=== PATIENT | male | born 1975 | race American Indian/Alaskan Native ===

== ENCOUNTER 2017-02-24 20:25 | Emergency (ER) | payer SELFPAY ==
[2017-02-24 21:59] LABS: Basophils % (Auto) 0.4 % (0.0-1.8); Eosinophils % (Auto) 0.5 % (0.0-4.3); Hematocrit 50.5 % (35.5-45.6); Hemoglobin 17.1 gm/dl (11.8-15.2); Mean Corpuscular HGB Conc 34 % (32-34); Mean Corpuscular Hemoglobin 29 pg (28-32); Mean Corpuscular Volume 84 fl (84-94); Platelet Count 297 K/mm3 (140-440); Red Cell Distribution Width 15.8 % (13.2-15.2); White Blood Count 5.2 K/mm3 (4.5-11.0)
[2017-02-24 22:09] LABS: Alanine Aminotransferase 15 units/L (7-56); Albumin 4.6 g/dL (3.9-5); Albumin/Globulin Ratio 1.4 %; Alkaline Phosphatase 81 units/L (35-129); Anion Gap 17 mmol/L; BUN/Creatinine Ratio 14; Blood Urea Nitrogen 10 mg/dL (9-20); Calcium 9.6 mg/dL (8.4-10.2); Carbon Dioxide 28 mmol/L (22-30); Chloride 100.9 mmol/L (98-107); Glucose 78 mg/dL (75-100); Lipase 84 units/L (13-60); Sodium 142 mmol/L (137-145); Total Protein 7.8 g/dL (6.3-8.2)
[2017-02-25] LABS: Bacteria,Urine 1+ /HPF (Negative); Bilirubin,Urine NEG (Negative); Blood,Urine NEG (Negative); Ketones,Urine NEG (Negative); Leukocyte Esterase,Urine NEG (Negative); Mucus,Urine FEW /HPF; Nitrite,Urine NEG (Negative); Protein,Urine <15 mg/dL mg/dL (Negative); Urobilinogen,Urine < 2.0 mg/dL (<2.0)
[2017-02-25] MEDS ORDERED: MORPHINE IV ONE (03:52)
[2017-02-25] MEDS ORDERED: NACL 0.9% 1000 ML 1,000 ML IV ONE (03:52)
[2017-02-25] MEDS ORDERED: MORPHINE ONE (04:00)
[2017-02-25] MEDS ORDERED: NACL ONE (04:23)
--- NOTE | 2017-02-25 05:14 | Cat Scan Report ---
FINAL REPORT EXAM: CT ABDOMEN PELVIS W CON HISTORY: hernia, abd and groin pain Rt side TECHNIQUE: Routine axial imaging was obtained of the abdomen and pelvis following the intravenous injection of 100 cc of Omnipaque 350. Oral contrast was not administered. Sagittal and coronal reconstructions were reviewed. FINDINGS: The lung bases are clear. Pleural fluid is not seen. The liver, gallbladder, pancreas, spleen, and adrenal glands appear normal. The kidneys reveal benign cortical cysts bilaterally measuring up to 2.4 cm in diameter. There is no evidence of hydronephrosis. The vascular structures enhance normally. The bowel loops are normal in caliber. There is no evidence of free fluid or adenopathy. The appendix is not enlarged. In the pelvis the prostate gland and bladder appear normal. There is no evidence of an inguinal hernia or abdominal wall hernia. The skeletal structures reveal arthritic changes in the lower lumbar spine. IMPRESSION: No evidence of inguinal or abdominal wall hernia. No evidence of obstructive uropathy. Benign cortical cysts in both kidneys.
--- NOTE | 2017-02-25 05:24 | Emergency Department Report ---
HPI - General Chief Complaint: Abdominal Pain Time Seen by Provider: 02/25/17 03:12 - HPI HPI: This is a 41 year-old male presents to the emergency department from home with complaint of pain to the right groin where he has a inguinal hernia. This was diagnosed at [facility] on 01/28/17. He has not been able to follow-up with a general surgeon. He denies any fever, nausea, vomiting or any problems with bowel or bladder. He was taking ibuprofen for his pain without any relief. Over the past few days it appears that the pain has increased. He does not currently have a primary care physician. No recent travel or sick contacts at home. ED Past Medical Hx - Past Medical History Additional medical history: [place]. Flujesus. Rectal hemorrhoids - Surgical History Additional Surgical History: Knee, tendon repair in arm, hernia - Social History Smoking Status: Current Every Day Smoker Substance Use Type: None - Medications Home Medications: Home Medications Medication Instructions Recorded Confirmed Last Taken Type Docusate Sodium [Colace] 100 mg PO BID PRN #60 capsule 04/03/16 Unknown Rx Hydrocortisone [Proctosol-Hc] 28.35 gm RC TID PRN #1 cream..g. 04/03/16 Unknown Rx traMADol [Ultram 50 MG tab] 50 mg PO Q4HR PRN #12 tablet 04/03/16 Unknown Rx HYDROcodone/ACETAMINOPHEN [[place] 1 each PO Q6H PRN #10 tablet 02/25/17 Unknown Rx 5-325 Tablet] ED Review of Systems ROS: Stated complaint: HERNIA PAIN Other details as noted in HPI Comment: All other systems reviewed and negative Constitutional: denies: chills, fever Eyes: denies: eye pain, eye discharge, vision change ENT: denies: ear pain, throat pain Respiratory: denies: cough, shortness of breath, wheezing Cardiovascular: denies: chest pain, palpitations Gastrointestinal: denies: abdominal pain, nausea, diarrhea Genitourinary: other (right inguinal pain). denies: dysuria, testicular pain, testicular mass Musculoskeletal: denies: back pain, joint swelling, arthralgia Skin: denies: rash, lesions Neurological: denies: headache, weakness, paresthesias Physical Exam - Physical Exam Vital Signs: Vital Signs 02/24/17 02/24/17 02/25/17 20:49 21:13 02:27 Temperature 98.0 F 98 F Pulse Rate 65 67 Respiratory 18 18 18 Rate Blood Pressure 133/78 133/78 O2 Sat by Pulse 100 100 100 Oximetry 02/25/17 02/25/17 02/25/17 02:43 02:52 03:00 Temperature Pulse Rate 58 L 51 L Respiratory 19 14 Rate Blood Pressure 127/83 122/77 O2 Sat by Pulse Oximetry 02/25/17 02/25/17 02/25/17 03:16 03:30 03:46 Temperature Pulse Rate 54 L 55 L 52 L Respiratory 23 12 17 Rate Blood Pressure 127/83 127/83 127/83 O2 Sat by Pulse Oximetry 02/25/17 02/25/17 04:00 04:16 Temperature Pulse Rate 52 L 53 L Respiratory 16 14 Rate Blood Pressure 127/75 127/75 O2 Sat by Pulse Oximetry Physical Exam: GENERAL: The patient is well-developed well-nourished. HENT: Normocephalic. Atraumatic. Patient has moist mucous membranes. EYES: Extraocular motions are intact. Pupils equal reactive to light bilaterally. NECK: Supple. Trachea is midline. CHEST/LUNGS: Clear to auscultation. There is no respiratory distress noted. HEART/CARDIOVASCULAR: Regular. There is no tachycardia. There is no gallop rub or murmur. ABDOMEN: Abdomen is soft, nontender. Patient has normal bowel sounds. There is no abdominal distention. : Normal-appearing penis and scrotum. No tenderness to palpation. There is a right-sided direct inguinal hernia that is slightly tender to palpation but does appear to be reducible. SKIN: Skin is warm and dry. NEURO: The patient is awake, alert, and oriented. The patient is cooperative. The patient has no focal neurologic deficits. The patient has normal speech. MUSCULOSKELETAL: There is no tenderness or deformity. There is no limitation range of motion. There is no evidence of acute injury. ED Course Vital Signs 02/24/17 02/24/17 02/25/17 20:49 21:13 02:27 Temperature 98.0 F 98 F Pulse Rate 65 67 Respiratory 18 18 18 Rate Blood Pressure 133/78 133/78 O2 Sat by Pulse 100 100 100 Oximetry 02/25/17 02/25/17 02/25/17 02:43 02:52 03:00 Temperature Pulse Rate 58 L 51 L Respiratory 19 14 Rate Blood Pressure 127/83 122/77 O2 Sat by Pulse Oximetry 02/25/17 02/25/17 02/25/17 03:16 03:30 03:46 Temperature Pulse Rate 54 L 55 L 52 L Respiratory 23 12 17 Rate Blood Pressure 127/83 127/83 127/83 O2 Sat by Pulse Oximetry 02/25/17 02/25/17 04:00 04:16 Temperature Pulse Rate 52 L 53 L Respiratory 16 14 Rate Blood Pressure 127/75 127/75 O2 Sat by Pulse Oximetry ED Medical Decision Making - Lab Data Result diagrams: 02/24/17 21:27 02/24/17 21:27 - Radiology Data Radiology results: report reviewed EXAM: CT ABDOMEN PELVIS W CON HISTORY: hernia, abd and groin pain Rt side TECHNIQUE: Routine axial imaging was obtained of the abdomen and pelvis following the intravenous injection of 100 cc of Omnipaque 350. Oral contrast was not administered. Sagittal and coronal reconstructions were reviewed. FINDINGS: The lung bases are clear. Pleural fluid is not seen. The liver, gallbladder, pancreas, spleen, and adrenal glands appear normal. The kidneys reveal benign cortical cysts bilaterally measuring up to 2.4 cm in diameter. There is no evidence of hydronephrosis. The vascular structures enhance normally. The bowel loops are normal in caliber. There is no evidence of free fluid or adenopathy. The appendix is not enlarged. In the pelvis the prostate gland and bladder appear normal. There is no evidence of an inguinal hernia or abdominal wall hernia. The skeletal structures reveal arthritic changes in the lower lumbar spine. IMPRESSION: No evidence of inguinal or abdominal wall hernia. No evidence of obstructive uropathy. Benign cortical cysts in both kidneys. - Medical Decision Making 41-year-old male presents with recurrent right inguinal hernia. I was able to reduce it in the emergency department manually. He still complained of some abdominal pain so a CT was done that did not show any signs of obstruction or any incarcerated or strangulate hernia at that time. Labs are unremarkable. He was given some pain control and is feeling improved. He was given multiple referrals for general surgeons and understands that this may recur and that he may want to seek outpatient surgical intervention. He understands to return to the emergency department if the bulge/hernia appears to be stuck, not reducible , if he starts having increased abdominal or groin pain, or if he is having any trouble with bowel movements or abdominal distention. Vital signs stable throughout his ED course. - Differential Diagnosis direct versus indirect hernia, lipoma, malignancy Critical Care Time: No Critical care attestation.: If time is entered above; I have spent that time in minutes in the direct care of this critically ill patient, excluding procedure time. ED Disposition Clinical Impression: Inguinal hernia Qualifiers: Obstruction and gangrene presence: without obstruction or gangrene Laterality: unilateral Recurrence: recurrent Qualified Code(s): K40.91 - Unilateral inguinal hernia, without obstruction or gangrene, recurrent Groin pain Qualifiers: Laterality: right Qualified Code(s): R10.31 - Right lower quadrant pain Disposition: TO HOME OR SELFCARE Is pt being admited?: No Condition: Stable Instructions: Inguinal Hernia (ED), Return to Work Instructions (ED) Additional Instructions: Please follow up with a general surgeon so you can establish care as it appears you might need outpatient surgical intervention regarding your inguinal hernia. However he should return to the emergency department immediately if you are unable to reduce the hernia or if it is stuck poking out, there is increased pain to the groin or abdomen, you develop any fever or intractable vomiting, or with any acute distress. You have been prescribed a medication that is sedating and therefore should not be taken prior to driving, working, and responsible for children and in no way should be mixed with alcohol of any quantity. I have given you multiple referrals for general surgery. Prescriptions: HYDROcodone/ACETAMINOPHEN [[place] 5-325 Tablet] 1 each PO Q6H PRN #10 tablet PRN Reason: Pain Referrals: CHARLES MCCLAIN MD [Staff Physician] - 3-5 Days CONSTANZA MALDONADO MD [Staff Physician] - 3-5 Days SHMUEL ROWLAND DO [Staff Physician] - 3-5 Days Forms: Work/School Release Form(ED) Time of Disposition: 06:09
[2017-02-25 07:21] VITALS: BP 122/78
== END 2017-02-25 08:30 | disposition home or self-care (01) ==
LOC: ED 20:25
DX: K40.90 Unilateral inguinal hernia, without obstruction or gangrene, not specified as recurrent (principal); F17.210 Nicotine dependence, cigarettes, uncomplicated
CPT/HCPCS: 36415; 74177; 80053; 81001; 83690; 85025; 96361; 96374; 99284; J2270; J7030; Q9967